=== PATIENT | female | born 1975 | race Caucasian/White ===

== ENCOUNTER → 2021-02-03 | Outpatient (CLI) | payer MEDICAID ==
[~2021-02-03] MED LIST: ALBU8.5H8 INH; ATOR-2 PO; BUPR300T94 PO; METH-640 PO; NONE PER PT; SERT100T32 PO; [UNRECOGNIZED DRUG - CODE] PO
[2021-02-03 10:26] LABS: BASOPHILS % (AUTO) 1 % (0-1); EOSINOPHILS % (AUTO) 5 % (1-7); LYMPHOCYTES % (AUTO) 37 % (22-44); MEAN CORPUSCULAR HEMOGLOBIN 30.6 pg (27.0-34.8); MEAN CORPUSCULAR HGB CONC 33.6 g/dL (32.4-35.8); MEAN PLATELET VOLUME 8.1 fL (7.4-10.4); MONOCYTES % (AUTO) 11 % (2-9); NEUTROPHILS % (AUTO) 47 % (42-75); PLATELET COUNT 284 x10^3/uL (130-400); RED BLOOD COUNT 4.46 x10^6/uL (3.82-5.3); RED CELL DISTRIBUTION WIDTH 13.2 % (9.6-15.2)
[2021-02-03 10:33] LABS: ALANINE AMINOTRANSFERASE 36 U/L (12-78); ALBUMIN 3.7 g/dL (3.4-5.0); ANION GAP 8 mmol/L (5-15); CALCIUM 8.8 mg/dL (8.5-10.1); CHLORIDE 106 mmol/L (98-107); CREATININE 0.52 mg/dL (0.55-1.02)
[2021-02-03 10:34] LABS: INTERNATIONAL NORMALIZED RATIO 1.05 (0.93-1.1); PROTHROMBIN TIME 11.2 Seconds (9.6-11.5)
[2021-02-03 10:35] LABS: ALKALINE PHOSPHATASE 78 U/L (45-117); BILIRUBIN,TOTAL 0.4 mg/dL (0.2-1.0); TOTAL PROTEIN 7.3 g/dL (6.4-8.2)
[2021-02-03 10:45] LABS: MICROSCOPIC INDICATED
== END | disposition home or self-care (01) ==
LOC: STAR 09:27
PROVIDERS: ATTEND Neurological Surgery
DX: Z01.818 Encounter for other preprocedural examination (principal); M48.02 Spinal stenosis, cervical region; G56.01 Carpal tunnel syndrome, right upper limb; Z20.822 Contact with and (suspected) exposure to COVID-19
CPT/HCPCS: 36415; 80053; 81001; 85025; 85610; 85730; 93005; U0003; U0005

== ENCOUNTER 2021-02-09 06:37 | Day surgery (SDC) | payer MEDICAID ==
[~2021-02-09] VITALS: Ht 176.5 cm; Wt 87.0 kg
[2021-02-09] MEDS ORDERED: BACITRACIN 50,000 UNIT ONE (06:43)
[2021-02-09] MEDS ORDERED: BUPIVACAINE/PF 0.5% ONE (06:43)
[2021-02-09] MEDS ORDERED: EPINEPHRINE 1 MG/ML, 1ML ONE (06:43)
[2021-02-09] MEDS ORDERED: LACTATED RINGERS 1,000 ML IV SCH (08:00)
[2021-02-09] MEDS ORDERED: LIDOCAINE-MPF 1%, 2ML INFIL ONE (08:00)
[2021-02-09] MEDS ORDERED: CHLORHEXIDINE 15 ML UDC PO ONE (08:00)
[2021-02-09] MEDS ORDERED: FENTANYL PF 250 MCG/5ML ONE (08:14)
[2021-02-09] MEDS ORDERED: MIDAZOLAM 1 MG/ML, 2ML ONE (08:14)
[2021-02-09 08:28] LABS: HCG UR SG 1.024 (1.003-1.030)
[2021-02-09] MEDS ORDERED: DEXAMETHASONE 4 MG/ML, 1ML ONE ×3 (10:34→10:39)
[2021-02-09] MEDS ORDERED: CEFAZOLIN 1,000 MG ONE (10:39)
[2021-02-09] MEDS ORDERED: METOPROLOL 1 MG/ML, 5ML ONE (10:51)
[2021-02-09] MEDS ORDERED: ACETAMINOPHEN 325 MG TABLET PO PRN (11:00)
[2021-02-09] MEDS ORDERED: METHOCARBAMOL 1,000 MG in DEXTROSE 5% 100 ML IV PRN (11:00)
[2021-02-09] MEDS ORDERED: hydrALAzine 20 MG/ML, 1ML IV PRN (11:00)
[2021-02-09] MEDS ORDERED: LABETALOL 5MG/ML, 20ML IV PRN (11:00)
[2021-02-09] MEDS ORDERED: OXYcodone 5 MG/5 ML ORAL.SOL UDC PO PRN (11:00)
[2021-02-09] MEDS ORDERED: MEPERIDINE/PF 25MG/0.5ML IVPush PRN (11:00)
[2021-02-09] MEDS ORDERED: ONDANSETRON 2MG/ML, 2ML IVPush PRN (11:00)
[2021-02-09] MEDS ORDERED: PROMETHAZINE 25 MG/ML, 1ML IVPush PRN (11:00)
[2021-02-09] MEDS ORDERED: ROCURONIUM 10MG/ML,5ML ONE (12:33)
[2021-02-09] MEDS ORDERED: PROPOFOL 10 MG/ML, 20ML ONE (12:33)
[2021-02-09] MEDS ORDERED: ONDANSETRON 2MG/ML, 2ML ONE (12:33)
[2021-02-09] MEDS ORDERED: OXYcodone 5 MG/5 ML ORAL.SOL UDC ONE (13:29)
[2021-02-09] MEDS ORDERED: FENTANYL PF 100 MCG/2ML ONE ×2 (13:29→13:57)
[2021-02-09] MEDS ORDERED: HYDROmorphone 1 MG/ML, 1ML INJ ONE ×2 (13:29→13:46)
[2021-02-09] MEDS: FENTANYL PF 100 MCG/2ML IV PRN ×4 (13:30→14:05)
[2021-02-09] MEDS: HYDROmorphone 1 MG/ML, 1ML INJ IVPush PRN ×4 (13:40→14:00)
[2021-02-09] MEDS ORDERED: SODIUM CHLORIDE 0.9% 1,000ML IV PRN (16:00)
[2021-02-09] MEDS ORDERED: ALBUTEROL HFA 90 MCG/SPRAY INH SCH (16:00)
[2021-02-09] MEDS ORDERED: PROMETHAZINE 25 MG/ML, 1ML IM PRN (16:00)
[2021-02-09] MEDS ORDERED: ALBUTEROL SULFATE 2.5 MG/3 ML NPPB PRN (16:00)
[2021-02-09] MEDS ORDERED: MAGNESIUM HYDROXIDE 8%, 30ML UDC PO PRN (16:00)
[2021-02-09] MEDS ORDERED: ONDANSETRON 2MG/ML, 2ML IV PRN (16:00)
[2021-02-09] MEDS ORDERED: BISACODYL 10 MG SUPP PR PRN (16:00)
[2021-02-09] MEDS ORDERED: HYDROcodone/APAP 5/325 TABLET PO PRN (16:00)
[2021-02-09] MEDS: morphine SULFATE 10 MG/ML, 1ML IV PRN ×3 (17:33→22:12)
[2021-02-09] MEDS: HYDROcodone/APAP 10/325 MG TABLET PO PRN (18:38)
[2021-02-09 19:22] VITALS: BP 119/71
[2021-02-09] MEDS: CEFAZOLIN PMX 1GM/50ML 50 ML IVPB SCH (19:56)
[2021-02-09] MEDS: NS + 20MEQ KCL 1,000 ML IV SCH (20:00)
[2021-02-09] MEDS ORDERED: ATORVASTATIN 80 MG TABLET PO SCH ×2 (21:00)
[2021-02-09] MEDS: METHOCARBAMOL 750 MG TABLET PO PRN (22:05)
[2021-02-10 00:23] VITALS: BP 123/69
[2021-02-10] MEDS: HYDROcodone/APAP 10/325 MG TABLET PO PRN ×2 (00:26→05:01)
[2021-02-10] MEDS: CEFAZOLIN PMX 1GM/50ML 50 ML IVPB SCH (03:35)
[2021-02-10 04:49] VITALS: BP 130/79
[2021-02-10] MEDS: NS + 20MEQ KCL 1,000 ML IV SCH (05:45)
[2021-02-10] MEDS: METHOCARBAMOL 750 MG TABLET PO PRN (05:57)
[2021-02-10 07:09] VITALS: BP 124/60
[2021-02-10] MEDS: morphine SULFATE 10 MG/ML, 1ML IV PRN (08:32)
[2021-02-10] MEDS ORDERED: SENNA/DOCUSATE TABLET PO SCH (09:00)
[2021-02-10] MEDS ORDERED: SERTRALINE 100MG TABLET PO SCH ×2 (09:00)
[2021-02-10] MEDS ORDERED: CETIRIZINE 10 MG TABLET PO SCH (09:00)
[2021-02-10] MEDS ORDERED: [UNRECOGNIZED DRUG - REMARK] PO SCH (09:00)
[2021-02-10] MEDS ORDERED: TEMPLATE NON-FORMULARY MED. (Bupropion Hcl** (Bupropion Xl**) 300 MG) PO SCH (09:00)
== END 2021-02-10 10:38 | disposition home or self-care (01) ==
LOC: OUT 06:37 → 4NE 14:59 → UNDOADMIN 21:59 → 4NE 21:59 → OUT 21:59 → UNDODISIN 02-10 10:35 → OUT 02-10 10:38
PROVIDERS: ATTEND Neurological Surgery
DX: M54.12 Radiculopathy, cervical region (principal); M48.02 Spinal stenosis, cervical region; M54.16 Radiculopathy, lumbar region; M25.78 Osteophyte, vertebrae; J45.909 Unspecified asthma, uncomplicated; Z79.899 Other long term (current) drug therapy; Z87.891 Personal history of nicotine dependence; Z91.040 Latex allergy status; Z98.890 Other specified postprocedural states
CPT/HCPCS: 20930; 20936; 22551; 22552; 22846; 22853; 36415; 64721; 72040; 81025; 86850; 86900; 97161; 97166; C1713; C1762; C1889; J0171; J0690; J1100; J1170; J2250; J2270; J2405; J2704; J2800; J3010; J7120; G0378